=== PATIENT | female | born 1970 | race Caucasian/White ===

== ENCOUNTER 2025-04-20 08:57 | Emergency (ER) | payer OTHER, SELFPAY ==
[2025-04-20] VITALS (26 sets, daily range): BP systolic 108–162; BP diastolic 56–81; PULSE 74–89; RESP 16–18; TEMP 36.6–37; O2SAT 94–100; BMI 34.4
[2025-04-20 09:39] LABS: Add Manual Diff / Slide Review NO; Hematocrit 23.7 % (36-46); Hemoglobin 7.2 g/dL (12.0-16.0); Lymphocytes Absolute Auto 1100 /uL (1100-4500); Mean Corpuscular HGB Conc 30.4 % (30-36); Mean Corpuscular Hemoglobin 18.0 PG (26-34); Mean Corpuscular Volume 59.2 fL (80-100); Platelet Count 455 X10^3/uL (150-400)
[2025-04-20 09:48] LABS: Alanine Aminotransferase 22 IU/L (<35); Albumin 4.4 g/dL (3.5-5.0); Albumin Globulin Ratio 1.4 (1.0-2.8); Alkaline Phosphatase 96 U/L (38-126); Blood Urea Nitrogen 14 mg/dL (7-17); Calcium 9.1 mg/dL (8.4-10.2); Carbon Dioxide 24 mmol/L (22-32); Chloride 104 mmol/L (98-107); Estimated Glomerular Filt Rate > 60 mL/min (>60); Globulin 3.1 g/dL (1.7-4.1); Glucose 122 mg/dL (70-99); HEMOLYSIS < 15 (0-50); Lipase 66 U/L (23-300); Potassium 3.8 mmol/L (3.4-5.1); Sodium 137 mmol/L (137-145); Total Protein 7.5 g/dL (6.3-8.2)
[2025-04-20 09:56] LABS: Anisocytosis 1+; Microcytosis 3+
[2025-04-20 09:57] LABS: Hypochromasia 1+
--- NOTE | 2025-04-20 10:48 | ED_ITS ---
HPI - SOB/Dyspnea
--- NOTE | 2025-04-20 10:48 | ED.SOB ---
HPI - SOB/Dyspnea General Chief Complaint: Shortness of Breath/Dyspnea Stated Complaint: heavy period . weak, SOB X 30 days Time Seen by Provider: 04/20/25 10:23 Source: patient, RN notes reviewed and old records reviewed Mode of arrival: Ambulatory Limitations: no limitations History of Present Illness HPI Narrative: 54-year-old female presents with complaint of recurrent very heavy periods typically 2 weeks they get quite heavy her most recent was approximately 27 days starting on March 22. She states they we will initially start very late and then get quite heavy. She states she had heavy bleeding throughout. She has not have any active bleeding currently. Since she has felt fatigued, short of breath, generally unwell. She notes this weekend she has a GI bug where she had nausea or vomiting and diarrhea that has resolved but she feels quite fatigued. Patient has not had any syncope. She has had some headaches, no fevers. No active chest pain she has felt short of breath. She has not been having any vaginal bleeding for several days but notes she is supposed to start her period in the next several days. She denies any swelling in extremities. She is not on any anticoagulants. States her only allergy is iodine. She was referred to an OBGYN after a pelvic ultrasound in November about possible uterine ablation but ultimately was not performed. No tobacco, alcohol or recreational drug. Related Data Allergies Allergy/AdvReac Type Severity Reaction Status Date / Time iodine Allergy Rash Verified 04/20/25 09:10 Review of Systems Review of Systems ROS Unobtainable: All systems reviewed & are unremarkable except as noted in HPI and below Patient History Social History Smoking Status: Never smoker Smoking Status: Never smoker Exam Narrative Exam Narrative: GENERAL: Alert and oriented x three, female in mild distress HEENT: Head normocephalic, atraumatic, EOMI, pupils reactive, face symmetric, moist mucous membranes NECK: Supple, full range of motion CARDIOVASCULAR: Regular rate and rhythm without murmurs, rubs or gallops. RESPIRATORY: Breath sounds equal bilaterally, no wheezes rales or rhonchi. ABDOMEN: Soft, nontender. Normoactive bowel sounds all 4 quadrants. No guarding or rebound, rigidity, no mass : No CVA tenderness EXTREMITIES: Normal range of motion, no clubbing or edema. Neurovascularly intact NEUROLOGICAL: Cranial nerves II through XII grossly intact. Moving all extremities SKIN: Warm, dry, no petechiae, no rashes or lesions. Initial Vital Signs Initial Vital Signs: Vital Signs Pulse Rate 89 04/20/25 09:05 Pulse Oximetry 99 04/20/25 09:05 Course Orders Ordered: ED Orders 04/20/25 09:25 CBC Auto Diff [Complete Blood Count AUTO DIFF] Stat CMP [Comprehensive Metabolic Panel] Stat Lipase Stat Pathologist Review (for CBC) Stat 04/20/25 10:40 PRBC [Packed Cells] Stat Type and Screen Stat 04/20/25 10:55 US pelvic complete Stat 04/20/25 12:27 EKG-12 Lead Stat Discontinued Medications Acetaminophen (Acetaminophen 325 Mg Tablet) 975 mg PO NOW ONE Stop: 04/20/25 14:28 Last Admin: 04/20/25 14:34 Dose: 975 mg Documented By: JIM Vital Signs Vital signs: Vital Signs - 8 hr 04/20/25 09:05 04/20/25 09:10 04/20/25 09:30 Temperature 97.8 F Pulse Rate 89 82 86 Respiratory Rate 16 Blood Pressure 162/81 H Pulse Oximetry 99 99 98 Oxygen Delivery Method Room Air 04/20/25 09:31 04/20/25 09:31 04/20/25 10:00 Temperature Pulse Rate 83 79 Respiratory Rate Blood Pressure 129/60 Pulse Oximetry 99 100 Oxygen Delivery Method 04/20/25 10:00 04/20/25 10:30 04/20/25 10:30 Temperature Pulse Rate 76 Respiratory Rate Blood Pressure 122/68 121/71 Pulse Oximetry 100 Oxygen Delivery Method 04/20/25 11:00 04/20/25 11:00 04/20/25 11:57 Temperature Pulse Rate 79 89 Respiratory Rate Blood Pressure 108/77 Pulse Oximetry 100 100 Oxygen Delivery Method 04/20/25 11:57 04/20/25 12:00 04/20/25 12:00 Temperature Pulse Rate 81 Respiratory Rate Blood Pressure 145/66 H 131/64 Pulse Oximetry 94 Oxygen Delivery Method 04/20/25 12:09 04/20/25 12:09 04/20/25 12:09 Temperature 98.1 F Pulse Rate 81 81 Respiratory Rate 16 Blood Pressure 129/62 129/62 Pulse Oximetry 99 Oxygen Delivery Method 04/20/25 12:15 04/20/25 12:15 04/20/25 12:30 Temperature Pulse Rate 78 77 Respiratory Rate Blood Pressure 124/64 Pulse Oximetry 100 100 Oxygen Delivery Method 04/20/25 12:30 04/20/25 12:45 04/20/25 12:45 Temperature 98.6 F 98.5 F Pulse Rate 80 Respiratory Rate Blood Pressure 111/65 119/67 Pulse Oximetry 99 Oxygen Delivery Method 04/20/25 13:00 04/20/25 13:00 04/20/25 13:15 Temperature Pulse Rate 75 Respiratory Rate Blood Pressure 119/70 118/72 Pulse Oximetry 100 Oxygen Delivery Method 04/20/25 13:15 04/20/25 13:30 04/20/25 13:30 Temperature Pulse Rate 78 77 Respiratory Rate Blood Pressure 117/56 L Pulse Oximetry 100 100 Oxygen Delivery Method 04/20/25 13:35 04/20/25 13:45 04/20/25 13:45 Temperature 97.9 F Pulse Rate 80 75 Respiratory Rate 18 Blood Pressure 117/56 L 117/63 Pulse Oximetry 100 Oxygen Delivery Method 04/20/25 14:00 04/20/25 14:00 04/20/25 14:15 Temperature Pulse Rate 74 78 Respiratory Rate Blood Pressure 124/68 Pulse Oximetry 100 98 Oxygen Delivery Method 04/20/25 14:15 04/20/25 14:19 04/20/25 14:19 Temperature Pulse Rate 78 Respiratory Rate Blood Pressure 111/64 135/64 Pulse Oximetry 100 Oxygen Delivery Method 04/20/25 14:32 04/20/25 14:32 04/20/25 14:45 Temperature Pulse Rate 88 78 Respiratory Rate Blood Pressure 142/65 H Pulse Oximetry 99 100 Oxygen Delivery Method 04/20/25 14:45 04/20/25 15:00 04/20/25 15:00 Temperature Pulse Rate 82 Respiratory Rate Blood Pressure 127/59 L 131/65 Pulse Oximetry 100 Oxygen Delivery Method 04/20/25 15:15 04/20/25 15:15 04/20/25 15:30 Temperature Pulse Rate 79 80 Respiratory Rate Blood Pressure 128/60 Pulse Oximetry 97 97 Oxygen Delivery Method 04/20/25 15:30 Temperature Pulse Rate Respiratory Rate Blood Pressure 114/56 L Pulse Oximetry Oxygen Delivery Method MDM - SOB/Dyspnea Lab Data 04/20/25 09:25 04/20/25 09:25 Labs: Lab Results 04/20/25 04/20/25 Range/Units 09:25 10:40 WBC 8.7 (4.5-11.0) X10^3/uL RBC 4.00 (4.0-5.2) X10^6/uL Hgb 7.2 L (12.0-16.0) g/dL Hct 23.7 L (36-46) % MCV 59.2 L (80-100) fL MCH 18.0 L (26-34) PG MCHC 30.4 (30-36) % RDW 18.4 H (11.6-14.8) % Plt Count 455 H (150-400) X10^3/uL Neut % (Auto) 76.4 H (50-75) % Lymph % (Auto) 12.8 L (25-40) % [place] % (Auto) 6.6 (3-14) % Eos % (Auto) 3.5 (2-4) % Baso % (Auto) 0.7 (0-2) % Neut # (Auto) 6700 (4063-1093) /uL Lymph # (Auto) 1100 (3645-8479) /uL [place] # (Auto) 600 (0-900) /uL Eos # (Auto) 300 (0-450) /uL Baso # (Auto) 100 (0-100) /uL RBC Morphology See below Hypochromasia 1+ H Anisocytosis 1+ H Microcytosis 3+ H Sodium 137 (137-145) mmol/L Potassium 3.8 (3.4-5.1) mmol/L Chloride 104 (98-107) mmol/L Carbon Dioxide 24 (22-32) mmol/L BUN 14 (7-17) mg/dL Creatinine 0.71 (0.52-1.04) mg/dL Estimated GFR > 60 (>60) mL/min BUN/Creatinine Ratio 19.7 (6-22) Glucose 122 H (70-99) mg/dL Calcium 9.1 (8.4-10.2) mg/dL Total Bilirubin 0.8 (0.2-1.3) mg/dL AST 28 (14-36) IU/L ALT 22 (<35) IU/L Alkaline Phosphatase 96 (38-126) U/L Total Protein 7.5 (6.3-8.2) g/dL Albumin 4.4 (3.5-5.0) g/dL Globulin 3.1 (1.7-4.1) g/dL Albumin/Globulin Ratio 1.4 (1.0-2.8) Lipase 66 (23-300) U/L Blood Type A Negative Antibody Screen Negative Crossmatch See Detail MDM Narrative Medical decision making narrative: Labs show hemoglobin of 7.2 white count 8.7 patient has platelets of 455, predominance of neutrophils has hypochromasia, anisocytosis and microcytosis with smear currently pending. Chemistries are overall appropriate glucose is 122 LFTs are negative with a normal lipase. Patient had type and screen. Pelvic ultrasound, endometrium measures 8 mm no fibroids in his significant ovarian cyst several nabothian cysts. EKG shows sinus rhythm rate of 77 ME 162 QRS 82 QTC 450, no acute ST-elevation or depression. Patient is hemodynamically stable but does have a hemoglobin of 7.2 I suspect this has a little bit acute on chronic from her description of frequent quite heavy vaginal periods most recently being 27 days. After discussion patient we would like to proceed with transfusion of 1 unit PRBCs. Spoke with the manager utilities, Dr. Stovall @ [phone]. Plan to have patient follow up this week in the office for further workup. If actively bleeding would have patient return to ED. Patient received 1 unit packed red blood cells on ambulation heart rate was 106 but otherwise vitals are appropriate. After discussion patient feels comfortable with discharge home. We did discuss observation. She is going to reach out to manager utilities tomorrow for follow up. Discussed return precautions. Discharge Plan Departure Patient Disposition: Home Clinical Impression: Anemia, Hx of menorrhagia Instructions: DI for Vaginal Bleeding Activity Restrictions/Additional Instructions: Your workup today shows your hemoglobin was 7.2, this is likely from your vaginal bleeding please follow up with manager utilities contacts included below. I spoke with the on-call dairy husbandman today and they would like to see you shortly. You did receive 1 unit of packed red blood cells. Please return if you have any new chest pain or shortness of breath, any lightheadedness or passing out, if you are having recurrent or new bleeding, new abdominal back or flank pain, inappropriate bruising or other new or concerning changes. Referrals: Sonya Zamora MD [Physician, MANAGER GENERAL] Jayleen Reis PA-C [Primary Care Provider, [facility]] Stand Alone Forms: Patient Portal/API, Work Release Note
--- NOTE | 2025-04-20 10:55 | DI.US.S_ITS ---
PROCEDURE: US PELVIC COMPLETE
--- NOTE | 2025-04-20 12:27 | EKG_ITS ---
[facility]
[2025-04-20] MEDS: ACETAMINOPHEN 325 MG TABLET 975 MG PO (14:34)
== END 2025-04-20 15:47 | disposition home or self-care (01) ==
PROVIDERS: Emergency Provider Emergency Medicine; PCP Physician Assistant Medical
DX: D64.9 Anemia, unspecified (principal); N92.0 Excessive and frequent menstruation with regular cycle
CPT/HCPCS: 36415; 36430; 76830; 76856; 80053; 83690; 85025; 86850; 86900; 86901; 93005; 99284; P9016